=== PATIENT | male | born 1960 | race Caucasian/White ===

== ENCOUNTER 2018-03-16 05:57 | Outpatient (CLI) | payer BC ==
[~2018-03-16] VITALS: Ht 190.5 cm; Wt 120.2 kg
[2018-03-16] MEDS ORDERED: LISI-552 PO (09:12)
[2018-03-16] MEDS ORDERED: PIOG30TA26 PO (09:12)
[2018-03-16] MEDS ORDERED: ALLO100T PO (09:12)
[2018-03-16] MEDS ORDERED: GLIP-173 PO (09:12)
[2018-03-17] MEDS ORDERED: ACHD5005 PO (15:03)
== END 2018-03-16 10:18 ==
LOC: PREOP 05:57
PROVIDERS: ATTEND Podiatrist Foot & Ankle Surgery
DX: Z01.818 Encounter for other preprocedural examination (principal)

== ENCOUNTER 2018-03-17 11:30 | Day surgery (SDC) | payer BC ==
[~2018-03-17] VITALS: Ht 190.5 cm; Wt 120.2 kg
[~2018-03-17 11:30] MED LIST: ALLO100T PO; GLIP-173 PO; LISI-552 PO; PIOG30TA26 PO
[2018-03-17] MEDS ORDERED: ceFAZolin INJECTION 1,000 MG in NS (IVPB) 100 ML IV ONE (11:45)
[2018-03-17] MEDS ORDERED: MIDAZOLAM 2 MG/2 ML (VERSED) VIAL ONE (12:21)
[2018-03-17 12:22] VITALS: BP 156/79
[2018-03-17] MEDS ORDERED: FAMOTIDINE 20MG/2ML IV (PEPCID) ONE (12:22)
[2018-03-17] MEDS: LACTATED RINGERS 1,000 ML IV PRN ×2 (12:23→13:59)
--- NOTE | 2018-03-17 12:34 | Progress Note-Pre Operative ---
Pre-Operative Progress Note H&P Reviewed The H&P was reviewed, patient examined and no changes noted. Date Seen by Provider: Mar 17, 2018 Time Seen by Provider: 12:34 Date H&P Reviewed: Mar 17, 2018 Time H&P Reviewed: 12:34 Pre-Operative Diagnosis: Osteomyelitis of the left 3rd metatarsal and 3rd toe PARAS JUÁREZ DPM Mar 17, 2018 12:34 pm
[2018-03-17] MEDS ORDERED: LIDOCAINE 1% INJ 20 ML 20 ML VIAL ONE (12:37)
[2018-03-17] MEDS ORDERED: BUPIVACAINE 0.5% 30 ML (SENSORCAINE) VIAL ONE (12:37)
[2018-03-17] MEDS ORDERED: FAMOTIDINE 20MG/2ML IV (PEPCID) IV ONE (12:45)
[2018-03-17] MEDS ORDERED: MIDAZOLAM 2 MG/2 ML (VERSED) VIAL IV ONE (12:45)
[2018-03-17] MEDS ORDERED: fentaNYL INJECTION 100 MCG/2 ML AMP ONE (12:49)
[2018-03-17] MEDS ORDERED: SEVOFLURANE (ULTANE) 15 ML INHAL SOLN ONE ×6 (12:50→14:30)
[2018-03-17] MEDS ORDERED: proPOfol 200 MG/20 ML (DIPRIVAN) VIAL IV ONE (12:50)
[2018-03-17] MEDS ORDERED: LIDOCAINE PF 2% 5 ML (XYLOCAINE) VIAL ONE (12:50)
[2018-03-17] MEDS ORDERED: GENTAMICIN 40 MG/ML 2 ML INJ SDV ONE (13:39)
[2018-03-17] MEDS ORDERED: ONDANSETRON 4 MG/2 ML (SDV) Z0FRAN ONE (14:12)
[2018-03-17] MEDS ORDERED: HYDROcodone/APAP 5 MG/325 MG (LORTAB) TAB PO PRN ×2 (14:45)
[2018-03-17] MEDS ORDERED: ONDANSETRON 4 MG/2 ML (SDV) Z0FRAN IVP PRN ×2 (14:45)
[2018-03-17] MEDS ORDERED: LACTATED RINGERS 1,000 ML IV SCH (14:45)
[2018-03-17] MEDS ORDERED: morphine INJ 10 MG/ML 1ML (SYR OR VIAL) IVP PRN ×2 (14:45)
--- NOTE | 2018-03-17 14:45 | Progress Note-Post Operative ---
Post-Operative Progess Note Surgeon (s)/Corporate Legal Assistant (s) Surgeon PARAS JUÁREZ DPM Corporate Legal Assistant: none Pre-Operative Diagnosis Osteomyelitis of the left 3rd metatarsal and 3rd toe Post-Operative Diagnosis same, with deep abscess Procedure & Operative Findings Date of Procedure 03/17/18 Procedure Performed/Findings Amputation of the left 3rd metatarsal and toe Anesthesia Type General Estimated Blood Loss Estimated blood loss (mL): 300mL Specimens/Packing Specimens Removed left 3rd metatarsal and toe Packing: Jamie drain PARAS JUÁREZ DPM Mar 17, 2018 2:45 pm
[2018-03-17] MEDS ORDERED: ACHD5005 PO (15:03)
--- NOTE | 2018-03-17 15:53 | Anesthesia-General Post-Op ---
General Patient Condition Mental Status/LOC: Same as Preop Cardiovascular: Satisfactory Nausea/Vomiting: Absent Respiratory: Satisfactory Pain: Controlled Complications: Absent Post Op Complications Complications None Follow Up Care/Instructions Patient Instructions None needed. Anesthesia/Patient Condition Patient Condition Patient is doing well, no complaints, stable vital signs, no apparent adverse anesthesia problems. No complications reported per nursing. [place] [facility] [place] No MARJORIE PAUL CRNA Mar 17, 2018 15:53
[2018-03-17 16:00] VITALS: BP 110/56
--- NOTE | 2018-03-17 16:10 | Diagnostic Imaging Report ---
EXAMINATION: Left foot at 03:01 p.m. INDICATION: Postop. FINDINGS: AP and lateral views were obtained. There are no prior plain film examinations available for comparison. The three-phase bone scan performed on 03/15/2018 however indicated osteomyelitis of the third metatarsophalangeal joint. In the interval since the prior exam, the patient has undergone amputation. The phalanges and the distal half of the metatarsal of the third ray have been surgically amputated. No other acute bony abnormality is appreciated. There is moderate degenerative disease of the first metatarsophalangeal joint and the interphalangeal joint of the great toe as well. There also appears to be some erosion of the medial aspect of the base of the proximal phalanx of the great toe. The nuclear medicine bone scan also indicated abnormal uptake in these areas. There is external gauze partially obscuring the phalanges of the fourth and fifth digits. There is also a band of increased density which is probably related to a dressing as well. No other bony abnormality is appreciated. IMPRESSION: There are postoperative changes consistent with amputation of the distal half of the third metatarsal and the phalanges of the third digit. There is no acute abnormality identified otherwise. Dictated by: Dictated on workstation # [id number]
[2018-03-17] MEDS ORDERED: CATHETER FLUSH 10 ML SYR IV PRN (16:30)
[2018-03-17] MEDS: LACTATED RINGERS 1,000 ML IV SCH ×2 (17:49→21:30)
[2018-03-17 20:10] VITALS: BP 117/60
--- NOTE | 2018-03-17 23:45 | OPERATIVE REPORT ---
DATE OF SERVICE: 03/17/2018 SURGEON: Treasure Winters DPM. PREOPERATIVE DIAGNOSIS: Osteomyelitis, left third metatarsal and toe. POSTOPERATIVE DIAGNOSES: Osteomyelitis, left third metatarsal and toe. Deep abscess, left foot. PROCEDURE: Amputation of the distal left third metatarsal and left third toe. WOUND CLASS: Contaminated. ANESTHESIA: General. HEMOSTASIS: Pneumatic thigh tourniquet at 300 mmHg. INDICATION: This 57-year-old male presents complaining of a chronically infected left foot. The patient has had wound care for the last several weeks to months without success, resolving his infected left foot. An MRI indicated a possible osteomyelitis. A bone scan was performed indicating osteomyelitis. X-rays were taken also showing a periosteal reaction consistent with osteomyelitis of the distal third metatarsal. The patient was given various treatment options including I and D as well as an amputation of infected bone. He has opted to have the amputation of the third metatarsal and toe. No guarantees were extended to the patient and he is willing to proceed. DESCRIPTION OF PROCEDURE: The patient was brought back to the operating table, placed in a secure supine position. Appropriate time out was performed. A pneumatic thigh tourniquet was placed on the left lower extremity over several layers of padding. The left foot was then prepped and draped in normal sterile manner. The left foot was then elevated and allowed to exsanguinate after which the tourniquet was inflated to 300 mmHg. Attention was then directed to the left third ray where an incision was created from the mid diaphysis of the third metatarsal from the dorsal distally through the inner web space between the second and third toe and extended plantarly to where the ulceration to the plantar aspect of the third metatarsal head was located. This incision was deepened in the same plane identifying a deep abscess in between the second and third metatarsals. This abscess material was sent for culture and sensitivity. Another abscess was identified to the dorsal aspect of the third metatarsal head. No necrotic tissue was identified. The dissection was carried out down to the third metatarsophalangeal joint where the third digit was dorsally subluxed on the third metatarsal head. Inspecting the third metatarsal head, there is erosion noted to the periarticular area of the third metatarsal. It was then decided that a partial amputation of the third ray should be performed. Utilizing a power sagittal saw, the distal portion of the third metatarsal was then removed at an angle from dorsal distal to plantar proximal. The specimen was then sent for gross and microscopic evaluation. The wound edges seemed to coaptate very well. The wound was flushed with copious amounts of normal saline with a powerwash, 3000 mL was infused with 80 mg of gentamicin. The wound was cultured and had a swab culture after the amputation and flush was performed. No other abnormalities were identified. The tourniquet was released and active bleeders were then cauterized as encountered. Next, ancillary incision with a #11 blade was created to the plantar lateral aspect of the left foot and Jamie drains quarter inch was then passed through this incision into the wound. The wound was flushed once again and closure was then performed with 4-0 Prolene in a simple interrupted type stitch. Excellent capillary refill time was noted to all the remaining digits of the left foot. Appropriate amount of bleeding was noticed throughout the procedure. A reinforced dressing was then applied after the foot was anesthetized utilizing 16 mL of 0.5% Marcaine plain in a local infusion to the surgical site. The postoperative dressing did consist of Betadine soaked Adaptic, sterile 4 x 4's, soft roll, ABD, Kerlix, and Bhanu wrap. The patient is to be nonweightbearing on left foot. We will hold him for 23 hours observation and depending on how much drainage he has, we will release him tomorrow. In the meantime, he is to continue with his oral antibiotic Linezolid and we will see him back in the office in one week period of time or sooner if necessary. Job ID: [id number] DocumentID: [id number] Dictated Date: 03/17/2018 15:02:26 Social Media Editor Date: 03/17/2018 23:44:54 Dictated By: DUC LEON
[2018-03-18 00:41] VITALS: BP 107/57
[2018-03-18] MEDS: LACTATED RINGERS 1,000 ML IV SCH ×2 (02:58→10:57)
[2018-03-18 04:01] VITALS: BP 114/59
[2018-03-18 08:00] VITALS: BP 121/60
[2018-03-18] MEDS ORDERED: LINEZOLID (ZYVOX) 600 MG TAB PO ONE (08:00)
--- NOTE | 2018-03-18 08:04 | Podiatry Progress Note ---
Standard Progress Note Progress Notes/Assess & Plan Date Seen by Provider: Mar 18, 2018 Time Seen by Provider: 07:59 Progress/Assessment & Plan The patient states that he is doing well with minimal pain and no F/C/N/V. There is hematogenous drainage to the dressing but not active. The nursing staff indicated that there was no reinforcement of the dressing this shift. Impression: Post operative date 1 of 3rd ray amputation of the left foot Plan: I will return this afternoon to inspect the foot. If there is no further bleeding, I will pull the drain and send the patient home. One dose order of Linezolid was given. He is to be Non-weight bearing on the left foot. Final Diagnosis Amputation of the left 3rd metatarsal and toe due to Osteomyelitis PARAS JUÁREZ DPM Mar 18, 2018 08:04
--- NOTE | 2018-03-18 10:55 | Physical Therapy Evaluation ---
PT Evaluation-General Medical Diagnosis Admission Date 03/17/18 Medical Diagnosis: osteomyelitis L 3rd metatarsal Onset Date: Mar 17, 2018 Therapy Diagnosis Therapy Diagnosis: decreased gait Height/Weight Height (Feet): 6 Height (Inches): 3.00 Weight (Pounds): 265 Weight (Ounces): 0.0 Precautions Precautions/Isolations: Fall Prevention, Standard Precautions Weight Bear Status Right Lower Extremity: Right Full Weight Bearing Left Lower Extremity: Left Non Weight Bearing Referral Physician: Dr. Winters Reason for Referral: Evaluation/Treatment Medical History Current History Osteomyelitis L metatarsal, surgery for amputation Reviewed History: Yes Social History Home: Single Level Current Living Status: Spouse Entry Into Home: Stairs Without Railing PT Steps Into Home: 1 Prior/Core FIM Prior Level of Function Functional [place] Measure 0=Not Assessed/NA 4=Minimal Assistance 1=Total Assistance 5=Supervision or Setup 2=Maximal Assistance 6=Modified [place] 3=Moderate Assistance 7=Complete [place] Bed Mobility: 7 Transfers (B,C,W/C) (FIM): 7 Gait: 7 Locomotion: 7 PT Evaluation-Current Subjective Pt. agrees to therapy, planning to discharge home today. States he has a knee scooter but would like to have crutches also. He denies pain at present time. Pt/Family Goals home with spouse Objective Patient Orientation: Person, Place, Time, Situation Problem Solving: Good ROM/Strength ROM Upper Extremities WNL ROM Lower Extremities WNL, except focal deficit L foot/ankle Strength Upper Extremities WNL Strength Lower Extremities WNL, not tested L ankle Integumentary/Posture Integumentary dressings on L foot/ankle, see nursing notes Posture upright Neuromuscular (Tone, Coordination, Reflexes) intact Sensory Vision: Functional Hearing: Functional Sensation Right Upper Extremit: Intact Sensation Left Upper Extremity: Intact Sensation Right Lower Extremit: Intact Sensation Left Lower Extremity: Intact Transfers Functional [place] Measure 0=Not Assessed/NA 4=Minimal Assistance 1=Total Assistance 5=Supervision or Setup 2=Maximal Assistance 6=Modified [place] 3=Moderate Assistance 7=Complete [place] Transfers (B, C, W/C) (FIM): 6 Supine to/from Sit: 6 Sit to/from Stand: 6 Gait Mode of Locomotion: Walk Anticipated Mode of Locomotion: Walk Distance (FIM): 1=up to 49 ft Distance: 25 ft in room Gait Level of Assist: 5 Gait Assistive Device: Crutches Comments/Gait Description instructed in proper gait sequence with crutches Balance Sitting Static: Good Sitting Dynamic: Good Standing Static: Good Standing Dynamic: Good Assessment/Needs Pt. is a 57 y.o. active male, currently NWB on the L foot due to surgical procedure. Pt. was instructed in crutch training and demonstrated safety with use of crutches. Pt. declined practicing stairs with crutches and we discussed proper technique which he verbalized good understanding. Nursing notified patient will need crutches upon D/C. All questions/concerns addressed from patient/spouse, goals met for transfers and gait training, plan DC PT. Rehab Potential: Good PT Short Term Goals Short Term Goals Time Frame: Mar 18, 2018 Transfers (B,C,W/C) (FIM): 6 Gait (FIM): 1 Distance (FIM): 1=up to 49 ft Gait Distance Comment: household level distance Gait Level of Assist: 5 Gait Assistive Device: Crutches PT Plan Treatment/Plan Treatment Plan: Discontinue PT, goals met Treatment Plan: Education, Gait, Safety, Transfers Treatment Duration: Mar 18, 2018 Frequency: 1 time per week Estimated Hrs Per Day: .5 hour per day Patient and/or Family Agrees t: Yes Time/GCodes Time In: 928 Time Out: 948 Total Billed Treatment Time: 20 Total Billed Treatment 1, KIKE 20' REECE PAREKH PT Mar 18, 2018 10:55
[2018-03-18 12:00] VITALS: BP 129/60
--- NOTE | 2018-03-18 13:04 | Podiatry Progress Note ---
Standard Progress Note Progress Notes/Assess & Plan Date Seen by Provider: Mar 18, 2018 Time Seen by Provider: 13:01 Progress/Assessment & Plan The patient states that he is doing well with minimal pain and no F/C/N/V. There is minimal new hematogenous drainage to the dressing that was applied this morning. Impression: Post operative date 1 of 3rd ray amputation of the left foot Plan: The outer dressing was removed and the Walker drain removed. New sterile dressing applied, left foot. Okay to discharge the patient to home. He is to follow up in my office in 5 days. He is to be Non-weight bearing on the left foot. Final Diagnosis Osteomyelitis, Cellulitis left foot - improved PARAS JUÁREZ DPM Mar 18, 2018 13:04
== END 2018-03-18 14:25 | disposition home or self-care (01) ==
LOC: SDC 11:30 → 4TH 15:35 → SDC 03-18 14:25
PROVIDERS: ATTEND Podiatrist Foot & Ankle Surgery
DX: E11.69 Type 2 diabetes mellitus with other specified complication (principal); M86.9 Osteomyelitis, unspecified; I10 Essential (primary) hypertension; K21.9 Gastro-esophageal reflux disease without esophagitis; E66.9 Obesity, unspecified; Z68.33 Body mass index [BMI] 33.0-33.9, adult; Z79.84 Long term (current) use of oral hypoglycemic drugs; Z79.899 Other long term (current) drug therapy
CPT/HCPCS: 73620; 82962; 87070; 87075; 87077; 87081; 87186; 87205; 88305; 88311